=== PATIENT | female | born 1960 | race Caucasian/White ===

== ENCOUNTER 2017-06-14 18:38 | Emergency (ER) | payer OTHER ==
[2017-06-14 18:49] VITALS: BP 125/89
--- NOTE | 2017-06-14 19:12 | UC ---
Skin Complaint HPI - HPI Summary HPI Summary: This a 56 yo otherwise healthy female who presented with c/o increasing erythema surrounding a bee sting. Patient sustained a bee sting yesterday evening and when she awoke this am there was just a small ring of erythema that has been increasing throughout the day today. Denies associated fever or generalized illness. - History of Current Complaint Chief Complaint: UCSkin Stated Complaint: LEFT ARM INFECTION S/P BEE STING - Allergy/Home Medications Allergies/Adverse Reactions: Allergies Allergy/AdvReac Type Severity Reaction Status Date / Time Penicillins [PCN] Allergy Rash Verified 06/14/17 18:50 Home Medications: Home Medications Calcium Carbonate [Calcium] 500 mg PO DAILY 06/14/17 [History Confirmed 06/14/17 ] Multivitamins/Minerals TAB* [Thera M Plus TAB*] 1 tab PO DAILY 06/14/17 [ History Confirmed 06/14/17] Review of Systems Constitutional: Negative Skin: Other - redness Eyes: Negative ENT: Negative Respiratory: Negative Cardiovascular: Negative Gastrointestinal: Negative Genitourinary: Negative Motor: Negative Neurovascular: Negative Musculoskeletal: Negative Neurological: Negative Psychological: Negative All Other Systems Reviewed And Are Negative: Yes PMH/Surg Hx/FS Hx/Imm Hx - Surgical History Surgical History: Yes Surgery Procedure, Year, and Place: Hysterectomy 2004. Lumpectomy Left Breast 2001 - Social History Alcohol Use: None Substance Use Type: None Smoking Status (MU): Never Smoked Tobacco Physical Exam Triage Information Reviewed: Yes Appearance: Well-Appearing Vital Signs: Initial Vital Signs Temp 98.4 F 06/14/17 18:45 Pulse 73 06/14/17 18:45 Resp 12 06/14/17 18:45 BP 125/89 06/14/17 18:45 Pulse Ox 100 06/14/17 18:45 Vital Signs Reviewed: Yes Respiratory: Positive: Chest non-tender, Lungs clear, Normal breath sounds. Negative: Crackles, Rhonchi, Wheezing Cardiovascular: Positive: RRR, No Murmur Abdomen Description: Positive: Nontender Skin: Positive: Other - L AC has a central area of deep erythema ~4cm in diameter with a surrounding ring of light erythema with a radius of ~2 cm and associated warmth. No induration or fluctuance. Course/Dx - Course Course Of Treatment: This is an otherwise healthy 56 yo female with an area of surrounding erythema following a bee sting. Recommend treating for secondary cellulitis and prescribed Keflex for 7 days. - Differential Diagnoses - Skin Complaint Differential Diagnoses: Abscess, Cellulitis, Contact Dermatitis - Diagnoses Provider Diagnoses: 1. Cellulitis L arm Discharge - Discharge Plan Condition: Stable Disposition: HOME Prescriptions: Cephalexin CAP* [Keflex CAP*] 500 mg PO TID #21 cap Patient Education Materials: Cellulitis (ED) Additional Instructions: Instructions: 1. Please take antibiotics as directed 2. Apply cool compresses to the area to limit pain/swelling
== END 2017-06-14 19:10 | disposition home or self-care (01) ==
LOC: UCCORT 18:38
DX: L03.114 Cellulitis of left upper limb (principal); Z88.0 Allergy status to penicillin
CPT/HCPCS: 99212; G0463

== ENCOUNTER 2017-10-03 11:58 | Emergency (ER) | payer OTHER ==
[2017-10-03 15:14] VITALS: BP 125/70
--- NOTE | 2017-10-03 15:42 | UC ---
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 Animal Available for Observation: Yes Animal Control Notified: No - Risk Factors Infection/Sepsis Risk Factors: Full-Thickness Puncture - Allergies/Home Medications Allergies/Adverse Reactions: Allergies Allergy/AdvReac Type Severity Reaction Status Date / Time Penicillins [PCN] Allergy Rash Verified 10/03/17 15:14 PMH/Surg Hx/FS Hx/Imm Hx Previously Healthy: Yes - Surgical History Surgical History: Yes Surgery Procedure, Year, and Place: Hysterectomy 2004. Lumpectomy Left Breast 2001 - Family History Known Family History: Positive: Cardiac Disease - Social History Occupation: Employed Full-time Lives: With Family Alcohol Use: None Substance Use Type: None Smoking Status (MU): Never Smoked Tobacco Have You Smoked in the Last Year: No - Immunization History Most Recent Tetanus Shot: states within 7 years Hx Tetanus, Diphtheria Vaccination: Yes Review of Systems Constitutional: Negative Skin: Other - punture wound, Eyes: Negative ENT: Negative Respiratory: Negative Cardiovascular: Negative Gastrointestinal: Negative Genitourinary: Negative Motor: Negative, Decreased ROM Neurovascular: Negative Musculoskeletal: Edema - at punture site Neurological: Negative Psychological: Negative Is Patient Immunocompromised?: No All Other Systems Reviewed And Are Negative: Yes Physical Exam Triage Information Reviewed: Yes Appearance: Well-Appearing Vital Signs: Initial Vital Signs Temp 98.4 F 10/03/17 15:08 Pulse 76 10/03/17 15:08 Resp 16 10/03/17 15:08 BP 125/70 10/03/17 15:08 Pulse Ox 99 10/03/17 15:08 Vital Signs Reviewed: Yes Eye Exam: Normal ENT Exam: Normal Neck exam: Normal Respiratory Exam: Normal Cardiovascular Exam: Normal Musculoskeletal Exam: Normal Musculoskeletal: Positive: ROM Intact, Edema @ - at puncture site Neurological Exam: Normal Psychological Exam: Normal Skin Exam: Other - cat bite to left 5th finger. possible full thickness, both upper and lower teeth bit pt. Bite Injury Course/Dx - Differential Dx/Diagnosis Differential Diagnosis/HQI/PQRI: Puncture, Other - cat bite Provider Diagnoses: cat bite to left 5th finger. puncture wound, possible full thickness Discharge - Discharge Plan Condition: Stable Disposition: HOME Prescriptions: Clindamycin Cap(NF) [Clindamycin Cap 300 mg Cap(NF)] 300 mg PO Q6H #28 cap Sulfamethox/Trimethoprim DS* [Bactrim DS 800/160 TAB*] 1 tab PO Q12H #14 tab Patient Education Materials: Animal Bite (ED) Referrals: Betsy Mcdonald MD [Primary Care Provider] - If Needed Additional Instructions: Please follow up with your PCP or return to clinic as needed. Please soak the wound in epsom salts and warm water two times daily for 7 days. Please follow manufacturers recommendation for preparation of the soaking solution.
== END 2017-10-03 15:49 | disposition home or self-care (01) ==
LOC: UCCORT 11:58
DX: S61.237A Puncture wound without foreign body of left little finger without damage to nail, initial encounter (principal); W55.01XA Bitten by cat, initial encounter; Y93.89 Activity, other specified; Y92.9 Unspecified place or not applicable; Z88.0 Allergy status to penicillin
CPT/HCPCS: 99212; G0463

== ENCOUNTER 2019-12-11 17:08 | Emergency (ER) | payer OTHER ==
[2019-12-11 18:15] VITALS: BP 137/79
--- NOTE | 2019-12-11 19:41 | UC ---
Lower Extremity/Ankle HPI - HPI Summary HPI Summary: 59-year-old female presents with complaints of right calf pain. States approximately 2 weeks ago she took a misstep while walking and felt a tearing sensation in the back of her right calf. Noticed some mild bruising and swelling at that time. Treated conservatively on her own with some rest, over- the-counter analgesics, and icing and was having some improvement in her symptoms. States couple of days ago she started doing some walking again for exercise and the following day noticed that she had some increased bruising to the back of the calf as well as some bruising and swelling down around the right ankle. She was evaluated by her primary care provider today who recommended she come to the urgent care for a Doppler ultrasound. Denies recent confinement, surgery, history of active cancer, chest pain, or shortness of breath. - History of Current Complaint Chief Complaint: UCLowerExtremity Stated Complaint: RIGHT LEG PAIN, SWELLING/BRUISING Time Seen by Provider: 12/11/19 19:20 Hx Obtained From: Patient Hx Last Menstrual Period: n/a Pain Intensity: 3 - Allergies/Home Medications Allergies/Adverse Reactions: Allergies Allergy/AdvReac Type Severity Reaction Status Date / Time Penicillins Allergy Rash Verified 12/11/19 18:16 PMH/Surg Hx/FS Hx/Imm Hx Previously Healthy: Yes - Denies significant PMH - Surgical History Surgical History: Yes Surgery Procedure, Year, and Place: Hysterectomy 2004. Lumpectomy Left Breast 2001 - Family History Known Family History: Positive: Cardiac Disease - Social History Occupation: Employed Full-time Lives: Alone Alcohol Use: None Substance Use Type: None Smoking Status (MU): Never Smoked Tobacco Have You Smoked in the Last Year: No - Immunization History Most Recent Tetanus Shot: states within 7 years Hx Tetanus, Diphtheria Vaccination: Yes Review of Systems All Other Systems Reviewed And Are Negative: Yes Constitutional: Positive: Negative Skin: Positive: Bruising Respiratory: Negative: Shortness Of Breath Cardiovascular: Negative: Palpitations, Chest Pain Gastrointestinal: Positive: Negative Genitourinary: Positive: Negative Motor: Negative: Weakness Neurovascular: Negative: Decreased Sensation Musculoskeletal: Positive: Calf Tenderness - See HPI Neurological: Positive: Negative Is Patient Immunocompromised?: No Physical Exam - Summary Physical Exam Summary: GENERAL APPEARANCE: Well developed, well nourished, alert and cooperative, and appears to be in no acute distress. CARDIAC: Normal S1 and S2. No S3, S4 or murmurs. Rhythm is regular. There is no peripheral edema, cyanosis or pallor. Extremities are warm and well perfused. Capillary refill is less than 2 seconds. Peripheral pulses intact. LUNGS: Clear to auscultation without rales, rhonchi, wheezing or diminished breath sounds. ABDOMEN: Positive bowel sounds. Soft, nondistended, nontender. No guarding or rebound. No masses or hepatosplenomegally. MUSKULOSKELETAL: ROM intact to all extremities. No joint erythema or tenderness. Normal muscular development. Normal gait. EXTREMITIES: Mild ecchymosis noted to the posterior right calf. Calf supple but mildly tender to touch. Nontender, dependent ecchmosis noted to the posterior right ankle with mild edema. Right mid calf circumference 42 cm vs 41 cm on left. NEUROLOGICAL: Strength and sensation symmetric and intact to lower extremities. SKIN: Skin normal color, texture and turgor. Triage Information Reviewed: Yes Vital Signs: Initial Vital Signs Temp 98.6 F 12/11/19 18:05 Pulse 70 12/11/19 18:05 Resp 16 12/11/19 18:05 BP 137/79 12/11/19 18:05 Pulse Ox 99 12/11/19 18:05 Vital Signs Reviewed: Yes Lower Extremity Course/Dx - Course Course Of Treatment: 59-year-old female presents with complaints of right calf pain. States approximately 2 weeks ago she took a misstep while walking and felt a tearing sensation in the back of her right calf. Noticed some mild bruising and swelling at that time. Treated conservatively on her own with some rest, over- the-counter analgesics, and icing and was having some improvement in her symptoms. States couple of days ago she started doing some walking again for exercise and the following day noticed that she had some increased bruising to the back of the calf as well as some bruising and swelling down around the right ankle. She was evaluated by her primary care provider today who recommended she come to the urgent care for a Doppler ultrasound. Denies recent confinement, surgery, history of active cancer, chest pain, or shortness of breath. Afebrile. Vital signs stable. Patient had mild ecchymosis noted to the posterior right calf. Calf supple but mildly tender to touch. Nontender, dependent ecchmosis noted to the posterior right ankle with mild edema. Right mid calf circumference 42 cm vs 41 cm on left. Strength and sensation symmetric and intact to lower extremities. Remainder of exam was unremarkable. Discussed with the patient that based on her history and exam I suspect that her symptoms are related to a tear of the calf muscle however I cannot completely rule out the possibility of a DVT at this time and I'm recommending that she be evaluated in the emergency room. Patient expresses that she is unsure that she wants to go to the ER at this time therefore I have strongly encouraged her to contact her primary care provider first thing in the morning to see if an outpatient ultrasound could be arranged. Anticipatory guidance and warning symptoms requiring immediate evaluation in the emergency room were reviewed with the patient. Verbalizes understanding and agrees with plan of care. - Differential Dx/Diagnosis Differential Diagnosis/HQI/PQRI: Compartment Syndrome, Contusion, DVT Provider Diagnosis: Right calf pain Discharge ED - Sign-Out/Discharge Documenting (check all that apply): Patient Departure All imaging exams completed and their final reports reviewed: No Studies - Discharge Plan Condition: Stable Disposition: HOME-RECOMMEND TO ED Patient Education Materials: Leg Pain (ED) Referrals: Betsy Mcdonald MD [Primary Care Provider] - Additional Instructions: I suspect that your leg pain and the bruising is from a tear of the calf muscle however I cannot rule out the possibility of a blood clot within the deep veins of the leg and would recommend that you go to the emergency room at this time for further evaluation. If you choose not to go to the ER tonight please call your primary care provider first thing in the morning to discuss arranging an outpatient ultrasound to rule out a blood clot. You may use [id number] acetaminophen (Tylenol) according to directions as needed for any pain. Rest the leg as much as possible. Try to avoid any strenuous activity. Try to keep the leg elevated to reduce any swelling. Seek immediate medical attention in the emergency room if you develop chest pain , shortness of breath, severe pain in the leg that is not managed with over-the- counter pain medication, or any worsening of symptoms. - Billing Disposition and Condition Condition: STABLE Disposition: Home-Recommend to ED
== END 2019-12-11 19:58 | disposition home health service (06) ==
LOC: UCCORT 17:08
DX: M79.661 Pain in right lower leg (principal); Z88.0 Allergy status to penicillin
CPT/HCPCS: 99211; G0463